=== PATIENT | female | born 1935 | race Caucasian/White ===

== ENCOUNTER 2019-07-22 16:42 | Inpatient (IN) | payer MEDICARE ==
[~2019-07-22] VITALS: Ht 160 cm; Wt 72.5 kg
[2019-07-22 17:35] LABS: BASOPHILS % (AUTO) 0.7 % (0.0-5.0); EOSINOPHILS % (AUTO) 3.8 % (0.0-8.0); HEMATOCRIT 48.2 % (36-48); LYMPHOCYTES % (AUTO) 26.2 % (21.0-51.0); MEAN CORPUSCULAR HEMOGLOBIN 30.1 pg (27.0-33.0); MEAN CORPUSCULAR VOLUME 91.3 fL (79-99); MONOCYTES % (AUTO) 8.2 % (3.0-13.0); NEUTROPHILS % (AUTO) 60.5 % (40.0-77.0); PLATELET COUNT (AUTO) 181 K/uL (130-400); RED BLOOD CELL COUNT(AUTO) 5.28 MIL/uL (4.00-5.50); RED CELL DISTRIBUTION WIDTH 12.8 % (11.0-15.5); WHITE BLOOD COUNT (AUTO) 6.8 K/uL (4.8-10.8)
[2019-07-22 17:40] LABS: CREATININE 1.2 mg/dL (0.5-1.5); POTASSIUM 3.4 mmol/L (3.5-5.1)
[2019-07-22 17:42] LABS: INR 0.89 (0.85-1.15); PARTIAL THROMBOPLASTIN TIME 23.6 SEC (26.3-35.5); PROTHROMBIN TIME 9.4 SEC (9.6-11.6)
[2019-07-22 17:44] LABS: ALBUMIN 3.7 g/dL (3.5-5.0); BILIRUBIN,TOTAL 0.5 mg/dL (0.2-1.0); TOTAL PROTEIN, SERUM 7.5 g/dL (6.0-8.3)
[2019-07-22 18:03] LABS: APPEARANCE,URINE Clear (CLEAR); BILIRUBIN,URINE Negative (NEGATIVE); COLOR,URINE Yellow (YELLOW); GLUCOSE, URINE (UA) 250 mg/dL (NEGATIVE); KETONES,URINE Negative (NEGATIVE); LEUKOCYTE ESTERASE ,URINE Trace (NEGATIVE); NITRATE,URINE Negative (NEGATIVE); OCCULT BLOOD,URINE Negative (NEGATIVE); PH,URINE 7.5 (5.0-8.0); PROTEIN,URINE POS 1+ mg/dL (NEGATIVE); UROBILINOGEN,URINE 0.2 mg/dL (0.2-1.0)
[2019-07-22 18:25] LABS: RBC,URINE None Seen /HPF (0-1)
[2019-07-22 18:26] LABS: BACTERIA,URINE Rare /HPF (None Seen); SQUAMOUS EPITHELIAL CELL,UR 0-2 /HPF (0-2); WBC,URINE 0-1 /HPF (0-1)
[2019-07-22] MEDS ORDERED: SODIUM CHLORIDE 0.9% 1000ML 1,000 ML IV ONE (19:13)
[2019-07-22] MEDS ORDERED: HYDRALAZINE HCL 20 MG/ML VIAL ONE (19:44)
[2019-07-22] MEDS ORDERED: POTASSIUM BICARB/CIT AC 25 MEQ TABLET.EFF ONE (19:45)
[2019-07-22 20:00] LABS: HEMOGLOBIN A1C 6.6 % (4.0-6.0)
[2019-07-22] MEDS ORDERED: ONDANSETRON HCL 4 MG/2 ML VIAL ONE (20:59)
[2019-07-22] MEDS ORDERED: HYDRALAZINE HCL 20 MG/ML VIAL IV PRN (21:15)
[2019-07-22 22:40] VITALS: BP 181/83
[2019-07-22] MEDS ORDERED: ONDANSETRON HCL 4 MG/2 ML VIAL IVP PRN (22:45)
[2019-07-22] MEDS ORDERED: LIDOCAINE HCL-MPF 1% 2ML VIAL IV PRN (22:45)
[2019-07-22] MEDS ORDERED: POTASSIUM CHLORIDE 20MEQ/100ML 100 ML IV PRN (22:45)
[2019-07-23] VITALS (8 sets, daily range): BP systolic 143–182; BP diastolic 66–85
[2019-07-23] MEDS: INSULIN R PO SS1 SQ SCH ×3 (06:39→20:29)
[2019-07-23] MEDS: AMLODIPINE BESYLATE 5 MG TAB PO SCH (10:07)
--- NOTE | 2019-07-23 14:59 | NUR ---
SPOKE WITH HEALTH CARE AIDE FROM [facility] IN [place] TO HAVE A MED LIST FAXED, HEALTH CARE AIDE STATED THIS PT HAS NOT USED THIS PHARMACY SINCE 2018, ONLY [facility] WAS SHOWN ON RECORD USED FOR FUNGAL INFECTION.
--- NOTE | 2019-07-23 17:11 | NUR ---
Initial Assessment Patient met with patient. Patient lives with spouse. No home services. DME: wheelchair, walker, BSC. Patient is independent and drives. PCP is Dr. Mauricio. Pharmacy is [facility]. DCP is home. Addendum: 07/23/19 at 1715 by RENNY SALDAÑA SS Amended: Links added.
--- NOTE | 2019-07-23 20:20 | NUR ---
ANALILIA BONDS ROUNDED SEEN AND EXAMINED PT. ORDERED TO DISCHARGE PT IN AM (07/24/19) WITH NORVASC 5 MG PO PRESCRIPTION. FOLLOW UP AT CLINIC ON Tuesday07/27/19. DO RENAL ARTERY US / DOPPLER BEFORE DISCHARGE IN AM.
[2019-07-24] VITALS (7 sets, daily range): BP systolic 122–180; BP diastolic 53–102
[2019-07-24] MEDS: INSULIN R PO SS1 SQ SCH ×4 (05:44→21:00)
--- NOTE | 2019-07-24 07:46 | NUR ---
CM TRIGGER REVIEWED WILL DEFER TO PUBLICATIONS DESIGNER, ADVISED OF TRIGGER. CM TO FOLLOW IF CONCERNS CONTINUE
[2019-07-24] MEDS: AMLODIPINE BESYLATE 5 MG TAB PO SCH (10:28)
--- NOTE | 2019-07-24 10:51 | NUR ---
SPOKE TO PT AT BEDSIDE, AAOX3., S/P RENAL SCAN STATES LIVES W SPOUSE WHO HAS PROSTATE CANCER, STATES HAS NO PART D MEDICARE, STATES MANY MEDICAL BILLS, STATES HAS HEART DOCTOR IN [place] WHO WILL GIVE HER SAMPLES IF NECESSARY, STATES SHE JUST WANTS 'THAT LITTLE PILL THAT JUST MAKES YOU FLOAT AND YOU CAN FUNCTION BUT YOU JUST DON'T GET SO ANXIOUS' REASSURED RE: COSTS OF MED. NORVASC 5 DAILY IN CHART AT THIS TIME. PT STATES 'MORE THAN JUST MED PROBLEMS' INTERVIEW REVEALS LIMITED SUPPORT SYSTEM, NO SCIENTOLOGIST OR CLUB AFFILIATION. ACKNOWLEDGES IS DISTRUSTFUL OF SAME. PT LISTS TRAUMATIC EVENTS FORM CHILDHOOD THAT CAUSE HER TO FEEL DISTRUSTFUL. CM OFFERED A PSYCH CONSULT 'BECAUSE HE CAN REVIEW YOUR HISTORY , AND REALLY LISTEN AND PRESCRIBE THE RIGHT MEDICATION FOR ANXIETY,' PT DECLINED, OFFERED LIST OF SUPPORT GROUPS, ETC, DECLINED. . NEWS LIBRARY DIRECTOR AWARE THAT PER CM, PATIENT HAS DEMONSTRATED CONVERSATION THAT MADE NEED TO BE BETTER INTERPRETED BY A IDENTIFIER HORSE OR PSYCHIATRIST
--- NOTE | 2019-07-24 13:49 | NUR ---
DR. STERN STATES PT IS NOT IN A POSITION TO MAKE DECISIONS. INSTRUCTED ZOË JAMES PT TO BE REFERRED TO [facility] FOR EVAL AND APS.
[2019-07-24] MEDS: ALPRAZOLAM 0.25 MG TABLET PO SCH ×4 (14:00→21:00)
--- NOTE | 2019-07-24 21:49 | NUR ---
here and updated with patient condition and vital signs,he said he is mostly to discharge patient tomorrow.No new orders received.
[2019-07-25 03:42] VITALS: BP 133/78
[2019-07-25] MEDS: INSULIN R PO SS1 SQ SCH ×3 (05:51→16:30)
[2019-07-25 08:16] VITALS: BP 119/61
[2019-07-25] MEDS: AMLODIPINE BESYLATE 5 MG TAB PO SCH (08:57)
[2019-07-25] MEDS: ALPRAZOLAM 0.25 MG TABLET PO SCH ×2 (08:58→13:36)
[2019-07-25] MEDS ORDERED: MEMANTINE HCL 5 MG TABLET PO SCH (09:00)
[2019-07-25] MEDS ORDERED: FLUOXETINE HCL 10 MG CAPSULE PO SCH (09:00)
[2019-07-25 11:45] VITALS: BP 147/76
--- NOTE | 2019-07-25 14:47 | NUR ---
[id number] Patient signed IM Letter, i faxed IM Letter to [phone] and placed in chart under consent tab
--- NOTE | 2019-07-25 16:31 | NUR ---
SS REFERRAL SW met with pt and . Pt sitting in chair by window and sitting in chair at bedside. SW asked about pt's life at home. reports that pt is very active and independent, loves working in her garden. denies that he has any mental or physical concerns regarding his . reports that his was seen a "crazy shrink" yesterday and was present for the entire visit. states the shrink asked my some very stupid questions to which my answered with a "smart answer". example: Where are you now? I am right here. " he asked where do you live? My answer with our address. He said "is that east or west". Pt stated " this is my fault, I gave too much information about my past and they just took it out of context". "Some rude, loud lady came in here and asked my a bunch of questions, so I was trying to get her to understand my hx and she took in out of context too" She was asking my about my part D and telling me that I need to have it, but my financials are none of her business" stated "we have always paid our bills, and my has always had what she needs". blamed for this confusion and staff's misunderstanding on pt giving everyone too much information. states he has no concerns about his of 66yrs years, they are fine. and deny need for any referral or information on counselors. states she is not going to take any medication dr Ortiz ordered. appreciative of visit and states he and will be just fine if someone will just tell him why his was not feeling well and needed to come to hospital. Nurse Dashawn charge nurse aware of above.
[2019-07-25 16:50] VITALS: BP 154/79
== END 2019-07-25 18:20 | disposition home or self-care (01) | DRG 78 ==
LOC: EDH 16:42 → OBSVTOIN 19:55 → EDHIP 19:55 → 4DH 21:41
PROVIDERS: ADMIT Internal Medicine; ATTEND Internal Medicine
DX: I67.4 Hypertensive encephalopathy (principal); I16.1 Hypertensive emergency; I10 Essential (primary) hypertension; Z82.49 Family history of ischemic heart disease and other diseases of the circulatory system; Z91.14 Patient's other noncompliance with medication regimen
CPT/HCPCS: 36415; 71045; 76770; 80053; 81001; 82550; 82948; 83036; 83690; 84484; 85025; 85610; 85730; 93005; G0378; J0360; J2405; J7030